=== PATIENT | male | born 1995 | race Caucasian/White ===

== ENCOUNTER 2018-03-03 05:05 | Inpatient (IN) ==
[2018-03-03] MEDS ORDERED: Ketorolac Inj 30 MG/ML (IVP) Vial IV.PUSH ONE (05:21)
[2018-03-03] MEDS ORDERED: Dexamethasone Inj 20 MG/5 ML Vial IV.PUSH ONE (05:21)
--- NOTE | 2018-03-03 05:27 | ED ---
HPI General Chief complaint: Dental/Oral Stated complaint: Sore throat/earache x 4 days Time Seen by Provider: 03/03/18 05:12 Source: patient and family Mode of arrival: ambulatory Limitations: no limitations History of Present Illness HPI narrative: Patient is a 22 year old male who comes in with his mom due to sore throat. Per mom he was diagnosed with tonsillitis and took a 10 day course of antibiotics. He says he felt better afterwards, but then started to have pain again on Friday. He was then prescribed Azithromycin. He has taken 4 days worth of this medication and is not getting better. He has pain with talking and swallowing. He has been taking Tylenol and Ibuprofen for pain. He had a fever 2 days ago, as high as 101. He denies difficulty breathing. He denies nasal congestion, cough, abdominal pain. Severity is moderate. Related Data Home Medications Medication Instructions Recorded Confirmed Lexapro 20 mg PO DAILY 03/03/18 03/03/18 acyclovir 400 mg PO BID 03/03/18 03/03/18 Allergies Allergy/AdvReac Type Severity Reaction Status Date / Time No Known Allergies Allergy Verified 03/03/18 05:21 Review of Systems ROS: all other systems reviewed are negative Constitutional Reports fever(s) ENT Reports sore throat Cardiovascular Denies chest pain Respiratory Denies cough and Denies dyspnea Gastrointestinal Denies nausea and Denies vomiting Musculoskeletal Denies myalgias and Denies arthralgias Integumentary/Breasts Denies sores and Denies wounds Neurologic Denies focal weakness and Denies numbness PMFSH Social History Social History Substance History: Active Abuse Smoking Status: Never smoker How Often Do You Have a Drink Containing Alcohol: 2 to 4 times a month Recent Travel in [facility] within the Last 8 Weeks: No Recent Out of Country Travel within the Last 8 Weeks: No Exam Narrative Exam Narrative: GENERAL: Awake and alert, in no acute distress. SKIN: Focused skin assessment warm/dry. HEAD: Atraumatic. Normocephalic. EYES: Pupils equal and round. No scleral icterus. ENT: Enlarged tonsils, kissing tonsils. Some trismus present. Mucous membranes pink and moist. NECK: Trachea midline. No JVD. Enlarged cervical lymphadenopathy. CARDIOVASCULAR: Regular rate and rhythm. No murmur appreciated. RESPIRATORY: No accessory muscle use. Clear to auscultation. Breath sounds equal bilaterally. GASTROINTESTINAL: Abdomen soft, non-tender, nondistended. MUSCULOSKELETAL: No obvious deformities. No clubbing. No cyanosis. No edema. NEUROLOGICAL: Awake and alert. No obvious cranial nerve deficits. Motor grossly within normal limits. Hot potato voice. PSYCHIATRIC: Appropriate mood and affect; insight and judgment normal. Course Initial Documented Vital Signs Temperature 98.2 F 03/03/18 05:09 Pulse Rate 80 03/03/18 05:09 Respiratory Rate 16 03/03/18 05:09 Blood Pressure 145/84 H 03/03/18 05:09 Pulse Oximetry 97 03/03/18 05:09 Last Documented Vital Signs Temperature 98.2 F 03/03/18 05:09 Pulse Rate 80 03/03/18 05:09 Respiratory Rate 16 03/03/18 05:09 Blood Pressure 112/52 L 03/03/18 07:28 Pulse Oximetry 97 03/03/18 07:28 Medical Decision Making [facility] Narrative Medical decision making narrative: Patient is a 22-year-old male comes in complaining of sore throat. Exam shows enlarged tonsils, trismus. IV established, labs sent. Patient given Toradol, Decadron, IV fluids. Labs concerning for a white blood cell count of 17.1. Patient given a dose of clindamycin. CT soft tissue neck was performed is concerning for a large amount of swelling. Patient reports some improvement after Decadron, though he still has some trismus and hot potato voice. I feel patient would benefit from observation due to degree of swelling, failed outpatient antibiotics, and difficulty opening his mouth. Case is signed out to me at 7 AM waiting for admission, apparently call had been put out for Dr. Sousa but no callback was received since this morning, patient is then admitted to hospitalist service, case was discussed with Dr. Gar and he wanted me to talk to ENT prior to admission. Case was discussed with Dr. Stiles who states that he will be glad to see the patient in consult. Medical Screen Exam Complete: Yes Emergency Medical Condition: Yes Differential Diagnosis Differential Diagnosis: Strep pharyngitis versus retropharyngeal abscess versus peritonsillar abscess versus mononucleosis Medical Records Medical records reviewed: Yes I reviewed the patient's medical records. Lab Data Lab results reviewed: Yes I reviewed the patient's lab results. Result diagrams: 03/03/18 05:35 03/03/18 05:35 Lab Results 03/03/18 03/03/18 03/03/18 Range/Units 05:35 05:35 05:35 CBC w Diff Slide review pending WBC 17.1 H (4.0-11.0) th/mm3 RBC 5.08 (4.50-5.90) mil/mm3 Hgb 14.9 (13.0-17.0) gm/dL Hct 44.8 (39.0-51.0) % MCV 88.2 (80.0-100.0) fL MCH 29.3 (27.0-34.0) pg MCHC 33.2 (32.0-36.0) % RDW 12.0 (11.6-17.2) % Plt Count 254 (150-450) th/mm3 MPV 8.0 (7.0-11.0) fL Neut % (Auto) 81.4 H (16.0-70.0) % Lymph % (Auto) 8.5 L (9.0-44.0) % [place] % (Auto) 7.9 (0.0-8.0) % Eos % (Auto) 0.2 (0.0-4.0) % Baso % (Auto) 2.0 (0.0-2.0) % Neut # (Auto) 14.0 H (1.8-7.7) th/mm3 Lymph # (Auto) 1.5 (1.0-4.8) th/mm3 [place] # (Auto) 1.3 H (0.0-0.9) th/mm3 Eos # (Auto) 0.0 (0.0-0.4) th/mm3 Baso # (Auto) 0.3 H (0.0-0.2) th/mm3 WBC Differential Manual diff final Seg Neuts % (Manual) 78 H (16-70) % Band Neuts % (Manual) 3 (0-6) % Lymphocytes % (Manual) 13 (9-44) % Monocytes % (Manual) 6 (0-8) % Abs Neuts (Manual) 13.9 H (1.8-7.7) th/mm3 Differential Comment . Platelet Estimate Normal (Normal) Platelet Morphology Normal (Normal) RBC Morphology Normal (Normal) Sodium 136 (136-145) meq/L Potassium 4.2 (3.5-5.1) meq/L Chloride 101 (98-107) meq/L Carbon Dioxide 27.0 (21.0-32.0) meq/L Anion Gap 8 (5-15) meq/L BUN 5 L (7-18) mg/dL Creatinine 1.00 (0.60-1.30) mg/dL Estimated GFR Greater than 89 (>89) mL/min Random Glucose 119 H (74-106) mg/dL Calcium 8.9 (8.5-10.1) mg/dL Total Bilirubin 1.0 (0.2-1.0) mg/dL AST 19 (15-37) U/L ALT 32 (12-78) U/L Alkaline Phosphatase 88 (45-117) U/L Total Protein 8.7 H (6.4-8.2) g/dL Albumin 3.7 (3.4-5.0) g/dL Monoscreen Neg (Neg) Imaging Data Radiologist's impression: Soft Tissue Neck CT 03/03/18 05:21 CONCLUSION: 1. Prominent right lateral pharyngeal wall thickening extending from the nasopharynx down to the supraglottic region measuring up to 3.4 centimeters in width. Discharge Plan Discharge Disposition Patient Disposition: ED Admit(ED Internal Use Only) Discharge Condition Condition: Stable Discharge Order Discharge Orders: ED Use Only Admit Order (Routine); Ordered 03/03/18 Ordered By: [facility] Discharge Details Diagnosis: Pharyngitis, Trismus Physicians Team ED Provider: Roseann Perdue Primary Care Provider: Ammy Sousa Rxs /Orders / Referrals /Forms Prescriptions: No Action acyclovir 400 mg Tablet 400 mg PO BID RF: 0 Lexapro 20 mg PO DAILY RF: 0 Status ED Status: With Doctor
[2018-03-03] MEDS ORDERED: Sod Chloride 0.9% Inj 1,000 ML IV.SIG SCH (05:30)
[2018-03-03 05:51] LABS: Baso # (Auto) 0.3 th/mm3 (0.0-0.2); Eos % (Auto) 0.2 % (0.0-4.0); Hematocrit 44.8 % (39.0-51.0); Hemoglobin 14.9 gm/dL (13.0-17.0); Lymph # (Auto) 1.5 th/mm3 (1.0-4.8); Lymph % (Auto) 8.5 % (9.0-44.0); Mean Corpuscular HGB Conc 33.2 % (32.0-36.0); Mean Corpuscular Hemoglobin 29.3 pg (27.0-34.0); Mean Corpuscular Volume 88.2 fL (80.0-100.0); Mono # (Auto) 1.3 th/mm3 (0.0-0.9); Mono % (Auto) 7.9 % (0.0-8.0); Neut % (Auto) 81.4 % (16.0-70.0); Platelet Count 254 th/mm3 (150-450); Red Blood Count 5.08 mil/mm3 (4.50-5.90); White Blood Count 17.1 th/mm3 (4.0-11.0)
[2018-03-03 05:58] LABS: Chloride 101 meq/L (98-107); Potassium 4.2 meq/L (3.5-5.1); Sodium 136 meq/L (136-145)
[2018-03-03] MEDS ORDERED: Clindamycin Inj 600 MG in Sodium Chlor 0.9% Inj 100 ML IV.SIG SCH (06:00)
[2018-03-03 06:01] LABS: Calcium 8.9 mg/dL (8.5-10.1)
[2018-03-03 06:02] LABS: Albumin 3.7 g/dL (3.4-5.0); Anion Gap 8 meq/L (5-15); Blood Urea Nitrogen 5 mg/dL (7-18); Glucose,Random 119 mg/dL (74-106)
[2018-03-03 06:05] LABS: Alanine Aminotransferase 32 U/L (12-78); Aspartate Aminotransferase 19 U/L (15-37); Glomerular Filtration Rate Greater Than 89 mL/min (>89)
[2018-03-03] MEDS: Clindamycin 600 mg/NS Premix 600 MG/50 ML PIGGYBACK IV.SIG STA ×2 (06:05→06:28)
[2018-03-03 06:07] LABS: Total Protein 8.7 g/dL (6.4-8.2)
[2018-03-03 06:08] LABS: Alkaline Phosphatase 88 U/L (45-117)
[2018-03-03 06:14] LABS: Lymphocytes 13 % (9-44); Monocytes 6 % (0-8); Platelet Estimate Normal (Normal); Platelet Morphology Normal (Normal); RBC Morphology Normal (Normal)
--- NOTE | 2018-03-03 06:35 | CT ---
EXAM DATE: 03/03/2018 6:21 AM EST AGE/SEX: 22 years / Male INDICATIONS: Neck and ear pain. Evaluate for abscess. CLINICAL DATA: This is the patient's initial encounter. Patient reports that signs and symptoms have been present for 4 - 6 days and indicates a pain score of 9/10. MEDICAL/SURGICAL HISTORY: None. None. RADIATION DOSE: 12.49 CTDI (mGy) COMPARISON: No prior exams available for comparison. TECHNIQUE: Helical acquisition was performed using a multirow detector CT scanner during the adminis tration of 100 ml Omnipaque 350 (iohexol) nonionic water-soluble contrast as a single exam dose. Us ing automated exposure control and adjustment of the mA and/or kV according to patient size, radiatio n dose was kept as low as reasonably achievable to obtain optimal diagnostic quality images. DICOM f ormat image data is available electronically for review and comparison. FINDINGS: There is an abnormal appearance to the right oral pharynx and hypopharynx with significant asymmetri c soft tissue thickening on the right side radiating the airway towards the left and measuring up to 3.4 cm in width. The soft tissue thickening extends inferiorly along the lateral hypopharyngeal wall down to the supraglottic level. There are no flecks of gas within the right lateral pharyngeal thicke zoie. No increased enhancement in the thickened soft tissue is mildly hypodense with mean CT density 44 Hounsfield units. Prevertebral soft tissues are normal in thickness. No enlarged lateral compartme nt nodes. The parotid and submandibular glands are normal in symmetric in size. The infraglottic airw ay is normal in size. Symmetric appearance to the thyroid without evidence of nodule. CONCLUSION: 1. Prominent right lateral pharyngeal wall thickening extending from the nasopharynx down to the sup raglottic region measuring up to 3.4 centimeters in width. Electronically signed by: Ramiro De La O MD Board Certified Radiologist 03/03/2018 6:33 AM EST
[2018-03-03 07:45] LABS: Mono Screen Neg (Neg)
--- NOTE | 2018-03-03 10:07 | P.HP ---
History of Present Illness Service: [facility] hospitalist service Primary Care Physician: Ammy Sousa MD History of Present Illness: HPI: 22-year-old white male who presented to emergency room with increased worsening sore throat for the last 4 days. He was treated back on 02/12/2018 for strep throat with amoxicillin 500 mg twice a day for 10 days he seemed to get a little bit better and then about 4 days ago he started getting worse so he went to the walk-in clinic on 02/28/2018 and was given Zithromax. Since then he is having increased sore throat and intermittent fever up to 101 degrees said swelling of the right submandibular mandibular region of his neck. He has had difficulty opening his mouth and difficulty swallowing due to the swelling in discomfort. He denies any nasal congestion, cough, shortness of breath. His white count was elevated in the ED. He is being admitted for IV antibiotic therapy and steroids and consultation with ENT. Medical history: He has recurrent herpes genitalis and is on maintenance acyclovir Anxiety/depression for 2 years and is followed by Dr. Saldivar and is on Lexapro 20 mg daily. About a month ago he was diagnosed with rheumatoid arthritis but has not been put on any medication yet and they are going to see another tin pot operator for a second opinion. His joint pains were confined primarily to the toes in both feet. No heart disease No lung disease No liver disease No kidney disease No hypertension No diabetes mellitus No thyroid disease No stroke or seizures No peptic ulcer disease No colon disease Surgical history: He had 6 ORIF of a left tibia and left fibula fracture at age 17 Allergies: None Family history: His biological father has depression His mother is in good health Social history: He only occasionally uses alcohol. Denies smoking cigarettes but does occasionally smoke marijuana He is a student at [employer] - Diagnosis (1) Tonsillitis (2) Pharyngeal swelling (3) Pharyngitis (4) Trismus Inpatient Certification: I certify that the inpatient services were ordered in accordance with Medicare regulations governing the order. This includes certification that hospital inpatient services are reasonable and necessary and in the case of services not specified as inpatient-only under 42 CFR 419.22(n), that they are appropriately provided as inpatient services in accordance to with the 2-midnight benchmark under 43 CFR 412.3(e) Review of Systems Review of systems: General: He has had fever intermittently HEENT: No runny nose, earache. He has had a sore throat and swelling of the right submandibular region Cardiovascular: No chest pain, heart palpitations, shortness of breath, orthopnea. Pulmonary: No cough, shortness of breath, hemoptysis, pleuritic chest pain Gastrointestinal: No nausea, vomiting, abdominal pain, heartburn, indigestion, diarrhea, constipation, melena, rectal bleeding. : No dysuria, hematuria, urgency, frequency, incontinence. Musculoskeletal: Negative Psychiatry: he has anxiety and depression that is stable on medication Extremities: No edema Dermatology: No rash or itching Neuro: No headache, confusion, motor weakness, numbness or tingling PMFSH - History History Provided By: Patient - Medical History Medical History: Medical History (Last Updated 03/03/18 @ 09:59 by Micha Gar MD) Anxiety Depression Fracture tibia/fibula Herpes genitalis Hx of rheumatoid arthritis - Surgical History Surgical History: Surgical History (Last Reviewed 03/03/18 @ 05:26 by Roseann Perdue MD) History of orthopedic surgery - Tobacco History Smoking Status: Never smoker - Alcohol History How Often Do You Have a Drink Containing Alcohol: 2 to 4 times a month - Substance Use History Substance History: Active Abuse - Substance Use Type Marijuana Status: Active - Travel History Recent Travel in the [place] Within the Last 8 Weeks: No Recent Travel Out of the Country Within the Last 8 Weeks: No - Immunization History Tetanus Immunization: >5 Years Medications and Allergies Active Medications: Active Medications Clindamycin Phosphate 600 mg/ (Sodium Chloride) 104 mls @ 200 mls/hr IV.SIG Q8H MOR Methylprednisolone Sodium Succinate (Solumedrol Inj) 40 mg IV.PUSH Q8HR MOR Allergies Allergy/AdvReac Type Severity Reaction Status Date / Time No Known Allergies Allergy Verified 03/03/18 05:21 Home Medications Medication Instructions Recorded Confirmed Type Lexapro 20 mg PO DAILY 03/03/18 03/03/18 History acyclovir 400 mg PO BID 03/03/18 03/03/18 History Exam Vital signs: Vital Signs 03/03/18 05:09 03/03/18 07:28 03/03/18 09:16 Temperature 98.2 F Pulse Rate 80 71 Respiratory Rate 16 16 Blood Pressure 145/84 H 112/52 L 122/65 Pulse Oximetry 97 97 98 Intake & Output 03/02/18 03/03/18 03/03/18 18:59 06:59 18:59 Intake Total 999 / 104 Balance 999 / 104 Weight 66.5 kg Intake: IV 999 104 / 104 Cleocin Inj 600 MG In NS Inj / 104 100 ML @ 100 mls/hr IV.SIG UNSCH X1 MOR Rx#:[id number] NS Inj 1,000 ML @ 1000 mls/hr 1000 / 1000 IV.SIG BOLUS MOR Rx#:[id number] Narrative: This is a pleasant white male in no distress. HEENT: Pupils equal, EOMs intact, sclera nonicteric, TMs intact, nose without lesions. He has swelling and erythema of the posterior pharynx and tonsils worse on the right side. He has difficulty opening his mouth. Neck: No JVD, no carotid bruit. He has slight swelling and tenderness of the right submandibular region. Heart: Regular rate and rhythm without murmurs or gallops Lungs: Clear to auscultation Abdomen: Soft, nontender, no masses, no organomegaly Extremities: No edema, pulses palpated, no calf tenderness Skin: Without lesions or rash Neuro: Alert, oriented, normal motor exam, sensation intact, cranial nerves intact Results - Labs CBC & Chem 7: 03/03/18 05:35 03/03/18 05:35 Labs: Laboratory Results - last 24 hr 03/03/18 03/03/18 03/03/18 05:35 05:35 05:35 CBC w Diff Slide review pending WBC 17.1 H RBC 5.08 Hgb 14.9 Hct 44.8 MCV 88.2 MCH 29.3 MCHC 33.2 RDW 12.0 Plt Count 254 MPV 8.0 Neut % (Auto) 81.4 H Lymph % (Auto) 8.5 L [place] % (Auto) 7.9 Eos % (Auto) 0.2 Baso % (Auto) 2.0 Neut # (Auto) 14.0 H Lymph # (Auto) 1.5 [place] # (Auto) 1.3 H Eos # (Auto) 0.0 Baso # (Auto) 0.3 H WBC Differential Manual diff final Seg Neuts % (Manual) 78 H Band Neuts % (Manual) 3 Lymphocytes % (Manual) 13 Monocytes % (Manual) 6 Abs Neuts (Manual) 13.9 H Differential Comment . Platelet Estimate Normal Platelet Morphology Normal RBC Morphology Normal Sodium 136 Potassium 4.2 Chloride 101 Carbon Dioxide 27.0 Anion Gap 8 BUN 5 L Creatinine 1.00 Estimated GFR Greater than 89 Random Glucose 119 H Calcium 8.9 Total Bilirubin 1.0 AST 19 ALT 32 Alkaline Phosphatase 88 Total Protein 8.7 H Albumin 3.7 Monoscreen Neg - Imaging Impressions Soft Tissue Neck CT 03/03/18 05:21 CONCLUSION: 1. Prominent right lateral pharyngeal wall thickening extending from the nasopharynx down to the supraglottic region measuring up to 3.4 centimeters in width. Caprini VTE Risk Assessment Caprini VTE Risk Assessment: No/Low Risk (score <= 1) (AGUSTIN bolden) Caprini Risk Assessment Model: Point Value = 1 Point Value = 2 Point Value = 3 Point Value = 5 Age 41-60 Minor surgery BMI > 25 kg/m2 Swollen legs Varicose veins or History of unexplained or recurrent spontaneous Oral contraceptives or hormone replacement Sepsis (< 1 month) Serious lung disease, including pneumonia (< 1 month) Abnormal pulmonary function Acute myocardial infarction Congestive heart failure (< 1 month) History of inflammatory bowel disease Medical patient at bed rest Age 61-74 Arthroscopic surgery Major open surgery (> 45 min) Laparoscopic surgery (> 45 min) Malignancy Confined to bed (> 72 hours) Immobilizing plaster cast Central venous access Age >= 75 History of VTE Family history of VTE Factor V Leiden Prothrombin [id number] Lupus anticoagulant Anticardiolipin antibodies Elevated serum homocysteine Heparin-induced thrombocytopenia Other congenital or acquired thrombophilia Stroke (< 1 month) Elective arthroplasty Hip, pelvis, or leg fracture Acute spinal cord injury (< 1 month) Prophylaxis Regimen: Total Risk Factor Score Risk Level Prophylaxis Regimen 0-1 Low Early ambulation 2 Moderate Order ONE of the following: *Sequential Compression Device (SCD) *Heparin 5000 units SQ BID 3-4 Higher Order ONE of the following medications: *Heparin 5000 units SQ TID *Enoxaparin/Lovenox 40 mg SQ daily (WT < 150 kg, CrCl > 30 mL/min) *Enoxaparin/Lovenox 30 mg SQ daily (WT < 150 kg, CrCl > 10-29 mL/min) *Enoxaparin/Lovenox 30 mg SQ BID (WT < 150 kg, CrCl > 30 mL/min) AND/OR *Sequential Compression Device (SCD) 5 or more Highest Order ONE of the following medications: *Heparin 5000 units SQ TID (Preferred with Epidurals) *Enoxaparin/Lovenox 40 mg SQ daily (WT < 150 kg, CrCl > 30 mL/min) *Enoxaparin/Lovenox 30 mg SQ daily (WT < 150 kg, CrCl > 10-29 mL/min) *Enoxaparin/Lovenox 30 mg SQ BID (WT < 150 kg, CrCl > 30 mL/min) AND *Sequential Compression Device (SCD) Assessment and Plan - Assessment (1) Tonsillitis Code(s): J03.90 - Acute tonsillitis, unspecified Status: Acute (2) Pharyngeal swelling Code(s): J39.2 - Other diseases of pharynx Status: Acute Plan: Possible underlying or developing abscess and ENT consult for further evaluation. (3) Pharyngitis Code(s): J02.9 - Acute pharyngitis, unspecified Status: Acute (4) Trismus Code(s): R25.2 - Cramp and spasm Status: Acute - Plan Plan: Patient is being admitted and put on IV clindamycin 600 mg every 8 hours. He has been given Decadron in the ED and will maintain him on Solu-Medrol 40 mg every 8 hours. ENT will be consulted and Dr. Gordon has been contacted by the ER physician already. We will order some IV fluids. We will recheck a CBC in the morning. Further recommendations as per ENT after they evaluate him. We will just use AGUSTIN hose and he can ambulate as tolerated. Code Status: Full code (3) Pharyngitis Qualifiers: Pharyngitis/tonsillitis etiology: unspecified etiology Qualified Code(s): J02.9 - Acute pharyngitis, unspecified
[2018-03-03] MEDS: Sod Chloride 0.9% Inj 1,000 ML IV.CONT SCH ×2 (10:58→21:44)
[2018-03-03] MEDS: MethylPREDNISolone Sod Succinate Inj 40 MG/ML Vial IV.PUSH SCH ×2 (13:37→21:39)
[2018-03-04] MEDS: MethylPREDNISolone Sod Succinate Inj 40 MG/ML Vial IV.PUSH SCH (06:11)
[2018-03-04] MEDS: Sod Chloride 0.9% Inj 1,000 ML IV.CONT SCH (06:13)
--- NOTE | 2018-03-04 07:15 | P.PN ---
Subjective Interval history: Patient states his sore throat is much improved. He was able to eat yesterday evening. His voice is improved also. He mentioned that the ENT specialist came by yesterday evening and and stated that he should complete 24 hours of the IV antibiotics and then he can go home and follow-up with him. He would like to go home later today. Physical Exam Vital signs: Vital Signs 03/03/18 07:28 03/03/18 09:16 03/03/18 12:00 Temperature 97.0 F L Pulse Rate 71 66 Respiratory Rate 16 20 Blood Pressure 112/52 L 122/65 138/70 Pulse Oximetry 97 98 98 03/03/18 16:00 03/03/18 20:00 03/04/18 00:00 Temperature 99.7 F H 99.1 F 98.0 F Pulse Rate 77 83 75 Respiratory Rate 20 18 18 Blood Pressure 138/69 126/66 125/60 Pulse Oximetry 97 97 97 03/04/18 04:00 Temperature 96.8 F L Pulse Rate 107 H Respiratory Rate 18 Blood Pressure 120/66 Pulse Oximetry 97 Intake & Output 03/03/18 03/04/18 03/04/18 18:59 06:59 18:59 Intake Total 448 / 448 2082 / 2082 Output Total 600 / 600 300 / 300 Balance -152 / -152 178 / 1782 Weight 67.9 kg 68.7 kg Intake: IV 2082 NS Inj 1,000 ML @ 100 mls/hr IV 1875 / 1875 .CONT .Q10H MOR Rx#:[id number] Cleocin Inj 600 MG In NS Inj 104 / 104 100 ML @ 100 mls/hr IV.SIG UNSCH X1 MOR Rx#:[id number] Cleocin Inj 600 MG In NS Inj 104 / 104 / 100 ML @ 200 mls/hr IV.SIG Q8H MOR Rx#:[id number] Oral 240 / 240 0 / 0 Output: Urine 600 / 600 300 / 300 Other: Date of Last Bowel Movement 02/28/18 Weight On Admission 66.5 kg Narrative: This is a pleasant white male in no distress. HEENT: Pupils equal, EOMs intact, sclera nonicteric, TMs intact, nose without lesions. He has swelling and erythema of the posterior pharynx and tonsils worse on the right side. His right tonsil almost touches the uvula but the swelling and redness is improved from yesterday. Neck: No JVD, no carotid bruit. He has slight swelling and tenderness of the right submandibular region. Heart: Regular rate and rhythm without murmurs or gallops Lungs: Clear to auscultation Abdomen: Soft, nontender, no masses, no organomegaly Extremities: No edema, pulses palpated, no calf tenderness Skin: Without lesions or rash Neuro: Alert, oriented, normal motor exam, sensation intact, cranial nerves intact Results - Labs CBC & Chem 7: 03/03/18 05:35 03/03/18 05:35 Laboratory Results - last 24 hr 03/03/18 05:35 Monoscreen Neg Microbiology 03/03/18 05:35 Throat Group A Streptococcus Screen (PATRICIA) - Final CBC today still pending. Assessment and Plan - Assessment (1) Tonsillitis Code(s): J03.90 - Acute tonsillitis, unspecified Status: Acute (2) Pharyngeal swelling Code(s): J39.2 - Other diseases of pharynx Status: Acute (3) Pharyngitis Code(s): J02.9 - Acute pharyngitis, unspecified Status: Acute (4) Trismus Code(s): R25.2 - Cramp and spasm Status: Acute - Plan Plan: He is much improved from yesterday and is able to eat and swallow much easier. He will be continued on the clindamycin IV until he gets his dose this afternoon and then he can be discharged on oral clindamycin 300 mg 4 times a day for 10 days. I will change his Solu-Medrol to oral prednisone this morning and send him home with 20 mg of prednisone daily for 7 days. He will follow-up with ENT as an outpatient as well as his PCP (Dr. Sousa). (3) Pharyngitis Qualifiers: Pharyngitis/tonsillitis etiology: unspecified etiology Qualified Code(s): J02.9 - Acute pharyngitis, unspecified
[2018-03-04 08:42] LABS: Baso % (Auto) 0.2 % (0.0-2.0); Eos % (Auto) 0.2 % (0.0-4.0); Hematocrit 40.4 % (39.0-51.0); Hemoglobin 13.4 gm/dL (13.0-17.0); Lymph # (Auto) 0.6 th/mm3 (1.0-4.8); Lymph % (Auto) 3.2 % (9.0-44.0); Mean Corpuscular HGB Conc 33.2 % (32.0-36.0); Mean Corpuscular Hemoglobin 29.7 pg (27.0-34.0); Mean Corpuscular Volume 89.5 fL (80.0-100.0); Mean Platelet Volume 8.6 fL (7.0-11.0); Mono # (Auto) 0.2 th/mm3 (0.0-0.9); Mono % (Auto) 0.9 % (0.0-8.0); Neut # (Auto) 18.6 th/mm3 (1.8-7.7); Neut % (Auto) 95.5 % (16.0-70.0); Platelet Count 260 th/mm3 (150-450); Red Blood Count 4.51 mil/mm3 (4.50-5.90); Red Cell Distribution Width 12.2 % (11.6-17.2); White Blood Count 19.4 th/mm3 (4.0-11.0)
[2018-03-04] MEDS ORDERED: Acyclovir 200 MG Capsule PO SCH ×2 (09:00→20:00)
[2018-03-04] MEDS ORDERED: predniSONE 20 MG Tablet PO SCH (09:00)
[2018-03-04 09:46] VITALS: RESP 20
--- NOTE | 2018-03-04 13:25 | P.PNADD ---
Addendum to Inpatient Note Additional information: Patient is feeling good and much improved from yesterday. His WBC was just slightly higher than yesterday but I think this is secondary to being on high dose steroids because clinically he is much improved. He will continue on Clindamycin 150mg two tablets four times a day for 10 days and Prednisone 20mg daily x 7 days. I ordered a repeat CBC for tomorrow to be done as an outpatient. He has no fever.
[2018-03-04 13:38] VITALS: BP 135/64; PULSE 73; TEMP 98.4; O2SAT 99
== END 2018-03-04 13:58 | disposition home or self-care (01) ==
LOC: PHED 05:05 → PHEDA 09:07 → PH3 09:47
PROVIDERS: ADMIT Family Medicine; ATTEND Family Medicine